=== PATIENT | female | born 1965 | race Caucasian/White ===

== ENCOUNTER 2021-08-27 01:39 | Emergency (ER) | payer SELFPAY ==
[2021-08-27 01:40] VITALS: BP 129/77; PULSE 78; RESP 16; TEMP 36.7; O2SAT 98; BMI 22.1
--- NOTE | 2021-08-27 02:17 | RAD_ITS ---
STUDY: X-RAY CHEST REASON FOR EXAM: Female, 56 years old. COVID TECHNIQUE: Single AP portable view of the chest. COMPARISON: None. FINDINGS: The lungs are clear and expanded. There is no demonstrated pleural abnormality. Normal size heart. Normal mediastinum and jose e. Normal visualized pulmonary arteries. Normal visualized aortic arch and descending thoracic aorta. There are diffuse degenerative changes of the visualized thoracic spine. Normal visualized ribs, clavicles, and shoulders. There is no demonstrated abnormality of the visualized soft tissue structures of the upper abdomen. RAD/Chest 1 View (Portable) IMPRESSION: No demonstrated acute cardiopulmonary process. Electronically Signed: Aislinn Lawrence MD at 3:13 EDT ,
--- NOTE | 2021-08-27 02:17 | CT_ITS ---
STUDY: CT BRAIN WITHOUT CONTRAST REASON FOR EXAM: Female, 56 years old. Change mental status possible seizure RADIATION DOSAGE (If Supplied By Facility): CTDIvol = ( 44.99 ) mGy, DLP = ( 829.85 ) mGycm TECHNIQUE: Transaxial CT imaging of the brain was performed without administration of intravenous contrast material. Individualized dose optimization techniques were used for this CT. COMPARISON: No relevant priors. FINDINGS: Normal soft tissue structures. Normal calvarium. There is mild cerebral atrophy with widening of the extra-axial spaces and ventricular dilatation. Normal white matter tracts of the cerebral hemispheres. There is a low attenuation within the left-sided basal ganglia measuring 7.5 mm. There is calcification in the bilateral basal ganglia. Normal brainstem. Normal cerebellum. There is no intracranial hemorrhage. There are no findings of an acute ischemic infarction. Normal visualized paranasal sinuses. CT/Brain/Head without Contrast IMPRESSION: Atrophy. Prior left-sided basal ganglia infarct. No visualized acute hemorrhage infarct or edema. Electronically Signed: Aislinn Lawrence MD at 3:47 EDT ,
--- NOTE | 2021-08-27 02:17 | EKG12_ITS ---
Test Reason : GI BLEED Blood Pressure : / mmHG Vent. Rate : 077 BPM Atrial Rate : 077 BPM P-R Int : 164 ms QRS Dur : 100 ms QT Int : 412 ms P-R-T Axes : 014 011 038 degrees QTc Int : 466 ms Normal sinus rhythm Nonspecific ST and T wave abnormality Prolonged QT Abnormal ECG Confirmed by CHRISTY MICHEL, CARMELA ([id number]), slot editor SILAS MARROQUIN ([id number]) on 08/27/2021 2:02:58 PM Referred By: PL Confirmed By:CARMELA HARRISON MD
--- NOTE | 2021-08-27 02:18 | EX.ED.DYSGE1 ---
HPI History of Present Illness Chief Complaint: Seizure Informant: patient and spouse/S.O. Narrative Narrative: Patient presents with concern for seizure at home. Patient was actually sitting on her walker leaning against the wall resting. Her checked her and she was hard to arouse. He showed me a video of this. He was shaking her head and then she really let out a large yawn and then slowly became more awake and alert. Patient states she was just resting. There was no shaking or myoclonic activity. When she woke up she was immediately alert. She did not have a postictal period. She is not have history of seizures. Patient started feeling tired and worn out with some myalgias on Friday. She had a COVID positive on Friday. She states she is not short of breath or coughing. She has no nausea vomiting but her appetite is down. And she is very tired. She thinks she was just sleeping. Patient also states that she will not stay in the hospital. We were able to convince her to at least get initial medical evaluation to look for abnormalities. At no point was the patient syncopal. She has never had chest pain or shortness of breath. PFSH PFSH Home Medications amlodipine 5 mg PO DAILY 08/27/21 [History Last Taken Unknown] aspirin 81 mg PO DAILY 08/27/21 [History Last Taken Unknown] atorvastatin 40 mg PO QHS 08/27/21 [History Last Taken Unknown] carvedilol 25 mg PO BID 08/27/21 [History Last Taken Unknown] clopidogrel 75 mg PO DAILY 08/27/21 [History Last Taken Unknown] insulin lispro [Humalog KwikPen Insulin] 10 unit SUBCUT DINNER 08/27/21 [History Last Taken Unknown] insulin lispro [Humalog KwikPen Insulin] 15 unit SUBCUT DAILY 08/27/21 [History Last Taken Unknown] Allergy/AdvReac Type Severity Reaction Status Date / Time Penicillins Allergy Hives Verified 08/27/21 01:47 Social History Smoking Status: Never smoker ROS ROS ED Constitutional Constitutional ED: Reports subjective Eyes Eyes: Denies blurry vision ENT ENT ED: Denies rhinorrhea or sore throat Cardiovascular Cardiovascular: Denies chest pain or palpitations Respiratory/Chest Respiratory/Chest: Denies cough or dyspnea Gastrointestinal Gastrointestinal: Denies nausea or vomiting Genitourinary Genitourinary ED: Denies dysuria Musculoskeletal Musculoskeletal: Reports myalgias Integumentary Denies rash Neurologic Neurologic: Denies headache(s) Psychiatric Psychiatric: Denies anxiety or depression Endocrine Endocrinology: Denies polydipsia or polyuria Allergic/Immunologic Allergic/Immunologic ED: Denies urticaria EXAM Physical Exam Const Vital Signs: 08/27/21 01:40 Temperature 98.1 F Temperature Source Oral Pulse Rate 78 Respiratory Rate 16 Blood Pressure 129/77 H Blood Pressure Mean 94 Pulse Ox 98 Oxygen Delivery Method Room Air Positive well nourished and well developed General Appearance ED: well developed; Negative for cyanotic or diaphoretic HEENT HEENT Narrative: Mildly dry mucous membranes. Eyes General Eye ED: Negative for pale conjunctiva or scleral icterus Neck no JVD Chest Wall inspection of chest normal Resp normal respiratory effort and clear to auscultation bilaterally Auscultation: Negative for rales, rhonchi or wheezes Cardio regular rate and regular rhythm GI normal to inspection, nondistended, normoactive bowel sounds and non-tender Palpation: soft Back/Spine no CVA tenderness Extremity normal to inspection General Extremety ED: Negative for edema or tenderness General Extremity: Negative for edema Neuro oriented x3 Sensorium / Orientation: alert Skin no rashes or lesions noted MDM MDM MDM Narrative Medical decision making narrative: CT shows chronic but no acute processes. Chest x-ray shows no acute process and no sign of pulmonary COVID. Her blood work is quite concerning. She is anemic at 9.1. She also has a creatinine of 6.05. I have no prior blood work. Happily, her potassium is not elevated in fact it is a little low. Her anemia may be due to her chronic kidney disease. My suspicion is that this kidney function is decreased slowly over time. She also has mildly elevated troponin. This also may be secondary to her kidney disease. She has no pulmonary or chest symptoms. Her EKG has some diffuse nonspecific changes but no sign of acute infarct. I talked with the patient again. I talk with her . She does not want to stay in the hospital. I explained her severe lab abnormalities. I explained that this is a risk to her life. I explained that she is essentially at a level that might need dialysis. She should have cardiac evaluation. She refuses to come in. She is awake she is alert she is appropriate. She states she has an appointment with the [facility] clinic which she has seen in the past. This appointment is in 3 days. I explained if she changes her mind she should come back in. I will give her a copy of her labs and results to see if this will help their care. She will leave AGAINST MEDICAL ADVICE. Lab Data Attestation: I reviewed the patient's lab results. Labs: Laboratory Results - last 24 hr 08/27/21 08/27/21 02:40 02:40 WBC 6.8 RBC 3.02 L Hgb 9.1 L Hct 27.5 L MCV 91.1 MCH 30.1 MCHC 33.1 RDW Std Deviation 39.9 RDW Coeff of Norm 11.9 Plt Count 228 MPV 9.5 Immature Gran % (Auto) 0.300 Neut % (Auto) 73.6 H Lymph % (Auto) 17.9 L [place] % (Auto) 7.7 Eos % (Auto) 0.4 Baso % (Auto) 0.1 Absolute Neuts (auto) 5.0 Absolute Lymphs (auto) 1.21 Nucleated RBC % 0 Sodium 136 Potassium 3.2 L Chloride 106 Carbon Dioxide 18.0 L Anion Gap 12 BUN 73 H Creatinine 6.05 H Estim Creat Clear Calc 10.22 Est GFR (MDRD) Af Amer 9 L Est GFR (MDRD) Non-Af 8 L BUN/Creatinine Ratio 12.1 Glucose 103 Calcium 8.0 L Troponin I High Sens 59 H Radiography Diagnostic Testing: Clinical Impression(s) from Imaging Studies Brain CT 08/27/21 02:17 IMPRESSION: Atrophy. Prior left-sided basal ganglia infarct. No visualized acute hemorrhage infarct or edema. Electronically Signed: Aislinn Lawrence MD at 3:47 EDT , Chest X-Ray 08/27/21 02:17 IMPRESSION: No demonstrated acute cardiopulmonary process. Electronically Signed: Aislinn Lawrence MD at 3:13 EDT , Discharge Plan Triage Chief Complaint: Seizure ED Provider: Javad Jonas Dx/Rx/DC Orders Clinical Impression: Acute kidney injury, Elevated troponin, Syncopal episodes, Left against medical advice Instructions: Acute Kidney Failure Dc, ED Dizziness or Syncope ... Prescriptions: No Action atorvastatin 40 mg Tablet 40 mg PO QHS RF: 0 carvedilol 25 mg Tablet 25 mg PO BID RF: 0 clopidogrel 75 mg Tablet 75 mg PO DAILY RF: 0 amlodipine 5 mg Tablet 5 mg PO DAILY RF: 0 aspirin 81 mg Tablet 81 mg PO DAILY RF: 0 insulin lispro [Humalog KwikPen Insulin] 100 unit/mL Insulin Pen 15 unit subcut DAILY RF: 0 insulin lispro [Humalog KwikPen Insulin] 100 unit/mL Insulin Pen 10 unit SUBCUT DINNER RF: 0 Primary Care Provider: Care Physician,No Primary Referrals: Care Physician,No Primary [Primary Care Provider] - Activity Restrictions/Additional Instructions: Follow-up with the open clinic on Friday as scheduled. Disposition Disposition: Against Medical Advice
[2021-08-27 02:50] LABS: Absolute Lymphocyte Count 1.21 X10^3/uL (0.83-4.51); Basophil# 0.01 X10^3/uL; Basophil% 0.1 % (0-1); Eosinophil# 0.03 X10^3/uL; Eosinophils% 0.4 % (0-5); Hematocrit 27.5 % (37-47); Hemoglobin 9.1 g/dL (12.0-15.0); Lymphocyte # 1.21 X10^3/ul (0.83-4.51); Lymphocyte % 17.9 % (19-41); Mean Corp Hgb Conc 33.1 g/dL (32-36); Mean Corpuscular Hgb 30.1 pg (27.0-32.0); Mean Corpuscular Volume 91.1 fL (81-99); Mean Platelet Vol. 9.5 fl (6.2-12.0); Monocyte# 0.52 X10^3/uL; Monocyte% 7.7 % (0-10); NRBC Flagged by Analyzer 0 % (0-5); Neutrophil # 4.96 X10^3/uL (2.7-7.7); Neutrophil % 73.6 % (47-70); Platelet Count 228 K/mm3 (150-450); RBC Distribution Width CV 11.9 % (11.6-14.6); RBC Distribution Width SD 39.9 fl (35.1-43.9); Red Blood Count 3.02 M/mm3 (4.2-5.4); White Blood Count 6.8 K/mm3 (4.4-11.0)
[2021-08-27 03:05] LABS: Anion Gap 12 (5-15); BUN 73 mg/dL (7-18); BUN/Creat Ratio 12.1 RATIO (10-20); Chloride 106 mmol/L (98-107); Creatinine, Serum 6.05 mg/dL (0.55-1.02); EST Glomerular Filtration Rate 8 mL/min (>60); Est Glom Filt Rate - Afr Amer 9 mL/min (>60); Estimated Creatinine Clearance 10.22 ml/min; Glucose 103 mg/dL (74-106); Potassium 3.2 mmol/L (3.5-5.1); Sodium Level 136 mmol/L (136-145); Troponin-I HS 59 pg/mL (3.0-54.0)
[2021-08-27 04:15] VITALS: BP 139/74; PULSE 78; RESP 16; O2SAT 98
== END 2021-08-27 04:28 | disposition left against medical advice (07) ==
PROVIDERS: Emergency Provider Emergency Medicine; Visit Provider Emergency Medicine
DX: N17.9 Acute kidney failure, unspecified (principal); Z79.4 Long term (current) use of insulin; R77.8 Other specified abnormalities of plasma proteins; R55 Syncope and collapse; Z79.82 Long term (current) use of aspirin; Z79.899 Other long term (current) drug therapy; Z53.29 Procedure and treatment not carried out because of patient's decision for other reasons
CPT/HCPCS: 70450; 71045; 80048; 84484; 85025; 93005; 99282; A4216